=== PATIENT | female | born 1965 | race Caucasian/White ===

== ENCOUNTER 2021-03-16 19:26 | Emergency (ER) | payer OTHER ==
[~2021-03-16] VITALS: Ht 170.2 cm; Wt 77.1 kg
[~2021-03-16 19:26] MED LIST: IBU800 MG PO; NORFLEX100MG PO
== END 2021-03-17 01:23 | disposition home or self-care (01) ==
LOC: ER 19:26
DX: M62.830 Muscle spasm of back (principal); V49.40XA Driver injured in collision with unspecified motor vehicles in traffic accident, initial encounter; Y92.410 Unspecified street and highway as the place of occurrence of the external cause

== ENCOUNTER 2022-09-13 00:12 | Emergency (ER) | payer OTHER ==
[~2022-09-13] VITALS: Ht 170.2 cm; Wt 65.8 kg
[2022-09-13] MEDS ORDERED: MEDROL8 MG PO (08:26)
[2022-09-13] MEDS ORDERED: BENADRYL25 MG PO (08:26)
[2022-09-13] MEDS ORDERED: PEPCID40 MG PO (08:26)
== END 2022-09-13 08:43 ==
LOC: ER 00:12
DX: L50.9 Urticaria, unspecified (principal); Z91.040 Latex allergy status

== ENCOUNTER 2025-02-13 16:24 | Emergency (ER) | payer OTHER ==
[~2025-02-13] VITALS: Ht 170.2 cm; Wt 75.7 kg
[~2025-02-13 16:24] MED LIST changes: +BENADRYL25 MG PO; +MEDROL8 MG PO; +PEPCID40 MG PO
[2025-02-13] MEDS ORDERED: ZOLOFT50 MG PO (16:39)
[2025-02-13] MEDS ORDERED: FAMOtidine 10 MG/ML (4ML VIAL) IV PUSH ONE (17:30)
[2025-02-13] MEDS ORDERED: KETOROLAC TROMETHAMINE 30 MG VIAL IV ONE (17:30)
[2025-02-13 18:17] LABS: BASO % 0.9 % (0.1-1.2); EOS # 0.16 (0.04-0.54); EOS % 2.3 % (0.7-7.0); LYMPH # 2.52 (1.18-3.74); LYMPH % 36.2 % (19.3-53.1); MEAN PLATELET VOLUME 10.90 fl (9.4-12.4); MONO # 0.66 (0.24-0.82); MONO % 9.5 % (4.7-12.5); NEUT # 3.54 (1.56-6.13); NEUT % 50.8 % (34.0-71.1); RED CELL DISTRIBUTION WIDTH 12.8 % (11.6-14.4)
[2025-02-13 18:46] LABS: INR 0.96
[2025-02-13 18:51] LABS: ALT/SGPT 21.0 U/L (12-78); AST/SGOT 15.0 U/L (15-37); BILIRUBIN TOTAL 0.34 mg/dL (0.3-1.2); BUN CREA RATIO 16.0 (7.0-25.0); CREATININE SERUM 0.8 mg/dL (0.55-1.02); GFR 73.93; GLOBULINA 3.7 G/DL (2.4-3.5); GLUCOSE FASTING 106.0 mg/dL (65-100); OSMOLALITY SERUM 286.0 MOSM/KG (275-295)
[2025-02-13 18:54] LABS: URINE APPEARANCE Clear; URINE BILIRRUBIN Negative (NEGATIVE); URINE BLOOD Negative; URINE COLOR Yellow; URINE GLUCOSE Negative (NEGATIVE); URINE KETONE Negative (NEGATIVE); URINE LEUKOCYTE Negative; URINE NITRATE Negative; URINE PROTEIN Negative (NEGATIVE); URINE UROBILINOGEN 0.2 E.U./dl
[2025-02-13 19:02] LABS: URINE BACTERIA 139.0 uL (0.0-1933); URINE EPITHELIAL CELLS 3.8 uL (0.0-38.8); URINE RBC 2.4 uL (0.0-20.8); URINE WBC 3.6 uL (0.0-23.2)
[2025-02-13 19:09] LABS: URINE CAST 0.14 uL (0.0-1.40)
[2025-02-13] MEDS ORDERED: NORFLEX100MG PO (20:43)
[2025-02-13 22:01] VITALS: BP 125/82; O2SAT 99
== END 2025-02-13 22:03 | disposition home or self-care (01) ==
LOC: ER 16:24
PROVIDERS: General Practice
DX: R10.20 Pelvic and perineal pain unspecified side (principal); Z91.040 Latex allergy status